=== PATIENT | female | born 1995 | race Caucasian/White ===

== ENCOUNTER 2017-06-23 03:24 | Emergency (ER) | payer MEDICAID ==
[~2017-06-23] VITALS: Ht 170.2 cm; Wt 75.7 kg
[~2017-06-23 03:24] MED LIST: ALBU18 INH; DOXY75CA4 PO; FLUT250M2 INH; RANI300T3 PO; [UNRECOGNIZED DRUG - CODE] XX; [UNRECOGNIZED DRUG - CODE] XX
[2017-06-23 03:42] VITALS: BP 147/102
[2017-06-23 04:46] LABS: Basophils # (auto) 0 uL; Eosinophils # (auto) 0.1 uL; Hemoglobin 13.6 g/dL (12.2-16.2); Monocytes # (auto) 0.7 uL; Neutrophils # (auto) 5.4 uL
[2017-06-23 04:49] LABS: Basophils % (auto) 0.4 % (0.0-2.0); Eosinophils % (auto) 1.1 % (0.0-7.0); Hematocrit 40.6 % (36.0-46.0); Lymphocytes % (auto) 24.5 % (10.0-50.0); Mean Corpuscular Hemoglobin 27.6 pg (28.0-32.0); Mean Corpuscular Hgb Conc. 33.5 g/dL (32.0-36.0); Mean Corpuscular Volume 82.4 fL (80.0-100.0); Mean Platelet Volume 10.4 fL (6.9-10.8); Monocytes % (auto) 8.1 % (0.0-12.0); Neutrophils % (auto) 65.9 % (37.0-80.0); Nucleated Red Blood Cells % 0.1 %; Platelet Count (auto) 269 10^3/uL (140-450); Red Cell Distribution Width 13.7 % (11.8-14.3); White Blood Cell 8.2 10^3/uL (4.4-10.8)
[2017-06-23 05:14] LABS: Acetaminophen < 2.0 ug/mL (10-30); Albumin 3.6 g/dL (3.4-5.0); BUN/Creatinine Ratio 9.9; Bilirubin, Total 0.2 mg/dL (0.2-1.0); Calcium 8.5 mg/dL (8.5-10.1); Magnesium 2.1 mg/dL (1.6-2.6); Potassium 3.7 mmol/L (3.5-5.1); Salicylate < 1.7 mg/dL (2.8-20.0); Total Protein 7.6 g/dL (6.4-8.2)
== END 2017-06-23 06:55 | disposition left against medical advice (07) ==
LOC: ER 03:27
DX: R51 Headache (principal)
CPT/HCPCS: 36415; 70450; 80053; 80320; 80329; 83735; 84702; 85025

== ENCOUNTER 2019-04-14 12:20 | Emergency (ER) | payer MEDICAID ==
[~2019-04-14] VITALS: Ht 170.2 cm; Wt 68.0 kg
[2019-04-14] MEDS ORDERED: SODIUM CHLORIDE 0.9% 1,000 ML IV ONE ×2 (12:24)
[2019-04-14] MEDS ORDERED: METOPROLOL TARTRATE 1MG/1ML-5ML VIAL IV ONE ×3 (12:30→16:30)
[2019-04-14] MEDS ORDERED: LORazepam 2MG/ML-1ML VIAL IV ONE (12:30)
[2019-04-14 12:50] LABS: Basophils # (auto) 0.1 uL; Basophils % (auto) 0.5 % (0.0-2.0); Eosinophils # (auto) 0.3 uL; Hematocrit 37.2 % (36.0-46.0); Hemoglobin 12.5 g/dL (12.2-16.2); Lymphocytes # (auto) 3.1 uL; Lymphocytes % (auto) 17.8 % (10.0-50.0); Mean Corpuscular Hemoglobin 29.4 pg (28.0-32.0); Mean Corpuscular Hgb Conc. 33.6 g/dL (32.0-36.0); Mean Corpuscular Volume 87.6 fL (80.0-100.0); Monocytes # (auto) 1.3 uL; Monocytes % (auto) 7.4 % (0.0-12.0); Neutrophils # (auto) 12.6 uL; Neutrophils % (auto) 72.3 % (37.0-80.0); Platelet Count (auto) 160 10^3/uL (140-450); Red Blood Cells 4.25 10^6/uL (4.0-5.20); Red Cell Distribution Width 14.3 % (11.8-14.3); White Blood Cell 17.4 10^3/uL (4.4-10.8)
[2019-04-14] MEDS ORDERED: LABETALOL HCL 5 MG/ML ML 20ML VIAL IV ONE ×2 (13:06→13:15)
[2019-04-14 13:22] LABS: Albumin 2.8 g/dL (3.4-5.0); Anion Gap 12 (5-15); Blood Urea Nitrogen 12 mg/dL (7-18); Calcium 7.8 mg/dL (8.5-10.1); Carbon Dioxide 17 mmol/L (21-32); Chloride 110 mmol/L (98-107); Glucose 96 mg/dL (74-106); Potassium 3.8 mmol/L (3.5-5.1); Sodium 139 mmol/L (136-145)
[2019-04-14 13:23] LABS: Urine WBC None Seen /hpf (0 - 5)
[2019-04-14 13:28] LABS: Alanine Aminotransferase 13 U/L (13-56); Alkaline Phosphatase 73 U/L (45-117); Aspartate Aminotransferase 15 U/L (15-37); BUN/Creatinine Ratio 16.4; Bilirubin, Total 0.3 mg/dL (0.2-1.0); GFR African American 126 mL/min; GFR Non-African American 104 mL/min; Total Protein 6.3 g/dL (6.4-8.2)
[2019-04-14 13:41] LABS: Urine Bacteria NONE SEEN /hpf (None Seen); Urine Blood 3+ /uL (Negative); Urine Specific Gravity 1.031 (1.001-1.035)
[2019-04-14 13:48] LABS: Alcohol, Urine < 3.0 mg/dL (0-5); Amphetamine Screen, Urine NEGATIVE (NEGATIVE); Barbiturate Scree,Urine NEGATIVE (NEGATIVE); Benzodiazephine Screen, Urine NEGATIVE (NEGATIVE); Cannabinoid Screen, Urine POSITIVE (NEGATIVE); Cocaine Screen, Urine NEGATIVE (NEGATIVE); Opiate Scree,Urine POSITIVE (NEGATIVE); Phencyclidine Screen, Urine NEGATIVE (NEGATIVE)
[2019-04-14] MEDS ORDERED: [UNRECOGNIZED DRUG - OTHER] IV ONE (15:45)
[2019-04-14] MEDS ORDERED: D5W 5% IV ONE (15:45)
[2019-04-14] MEDS ORDERED: NICARDIPINE 25MG/250ML BAG KIT 250 ML IV ONE (15:55)
[2019-04-14] MEDS ORDERED: NICARDIPINE 25MG/250ML BAG KIT 250 ML IV SCH (16:00)
[2019-04-14] MEDS ORDERED: LORazepam 2MG/ML-1ML VIAL ONE (16:19)
[2019-04-14] MEDS ORDERED: MORPHINE SULF INJ 2 MG/ML SYRINGE 1ML ONE (16:24)
[2019-04-14] MEDS ORDERED: diphenhdrAMINE HCL 50 MG/1 ML VL ONE (16:24)
[2019-04-14] MEDS ORDERED: diphenhdrAMINE HCL 50 MG/1 ML VL IV ONE (16:30)
[2019-04-14] MEDS ORDERED: MORPHINE SULF INJ 2 MG/ML SYRINGE 1ML IV ONE (16:30)
[2019-04-14 17:39] VITALS: BP 130/86
== END 2019-04-14 14:29 | disposition short-term general hospital (02) ==
LOC: EDBD 12:20 → ER 12:20
DX: N93.9 Abnormal uterine and vaginal bleeding, unspecified (principal); R00.2 Palpitations; Z79.899 Other long term (current) drug therapy
CPT/HCPCS: 36415; 76805; 80053; 80307; 81001; 82962; 84484; 84702; 85025; 93005; 96361; 96365; 96375; 96376; 99291; J1200; J2060; J2270; J7030; J7060

== ENCOUNTER 2024-01-27 14:24 | Inpatient (IN) | payer MEDICAID ==
[~2024-01-27] VITALS: Ht 170.2 cm; Wt 81.0 kg
[2024-01-27] MEDS: FUROSEMIDE 40 MG/4 ML VIAL IV ONE (14:30)
[2024-01-27 15:09] LABS: Basophils # (auto) 0.1 10 ^3/uL (0-0.2); Basophils % (auto) 0.8 % (0.0-2.0); Eosinophils # (auto) 0 10 ^3/uL (0-0.8); Eosinophils % (auto) 0.1 % (0.0-7.0); Hematocrit 42.1 % (36.0-46.0); Hemoglobin 12.7 g/dL (12.2-16.2); Lymphocytes # (auto) 1.4 10 ^3/uL (0.4-5.4); Lymphocytes % (auto) 17.9 % (10.0-50.0); Mean Corpuscular Hemoglobin 25.3 pg (28.0-32.0); Mean Corpuscular Hgb Conc. 30.3 g/dL (32.0-36.0); Mean Corpuscular Volume 83.6 fL (80.0-100.0); Monocytes # (auto) 0.6 10 ^3/uL (0-1.3); Neutrophils # (auto) 5.9 10 ^3/uL (1.6-8.6); Neutrophils % (auto) 74.2 % (37.0-80.0); Nucleated Red Blood Cells % 0.1 %; Red Blood Cells 5.04 10^6/uL (4.0-5.20); Red Cell Distribution Width 15.9 % (11.8-14.3); White Blood Cell 7.9 10^3/uL (4.4-10.8)
[2024-01-27 15:23] LABS: Chloride 109 mmol/L (98-107); Potassium 4.8 mmol/L (3.5-5.1); Sodium 139 mmol/L (136-145)
[2024-01-27 15:24] LABS: Anion Gap 12 (5-15); Calcium 9.9 mg/dL (8.5-10.1); Carbon Dioxide 18 mmol/L (20-30)
[2024-01-27 15:29] LABS: Blood Urea Nitrogen 20 mg/dL (9-23); Glucose 175 mg/dL (74-106)
[2024-01-27] MEDS: ASPirin 81 mg TAB PO ONE (16:00)
[2024-01-27] MEDS: IOHEXOL 350 MG/ML 100ML IJ ONE ×3 (16:33→21:17)
[2024-01-27] MEDS: LABETALOL HCL 5 MG/ML 4ML SYRINGE IV ONE ×2 (16:40→16:55)
[2024-01-27] MEDS: ONDANSETRON HCL 4 MG/2 ML VIAL IV ONE (17:11)
[2024-01-27] MEDS ORDERED: HYDROcodone-ACET 5/325MG TAB PO PRN (17:15)
[2024-01-27] MEDS ORDERED: NITROGLYCERIN 0.4 MG SL TAB SL PRN (17:15)
[2024-01-27] MEDS ORDERED: MORPHINE SULFATE INJ 2 MG/ml SYRG IV PRN ×2 (17:15)
[2024-01-27] MEDS ORDERED: ALBUTEROL SULF 2.5 MG/0.5ML(0.5%) NEB SOLN NEB PRN (17:15)
[2024-01-27] MEDS ORDERED: ACETAMINOPHEN 325 MG TAB PO PRN (17:15)
[2024-01-27 17:43] VITALS: PULSE 100; RESP 20; O2SAT 97
[2024-01-27] MEDS ORDERED: hydrALAZINE HCL 20 MG/ML VL IV PRN (18:00)
[2024-01-27] MEDS: CARVEDILOL 12.5 MG TAB PO ONE (18:00)
[2024-01-27] MEDS ORDERED: CARVEDILOL 12.5 MG TAB PO SCH (18:00)
[2024-01-27] MEDS: LEVALBUTEROL HCL 1.25 MG/3 ML NEB NEB SCH (18:54)
[2024-01-27 18:55] VITALS: PULSE 88; RESP 18; O2SAT 93
[2024-01-27 19:01] VITALS: PULSE 85; RESP 18; O2SAT 96
[2024-01-27 19:41] LABS: Triglycerides 75 mg/dL (< 150)
[2024-01-27 19:42] LABS: LDL Cholesterol 130 mg/dL (< 100)
[2024-01-27 19:43] LABS: Cholesterol 181 mg/dL (< 200); HDL Cholesterol 38 mg/dL (40-59)
[2024-01-27 20:56] VITALS: BP 148/86; PULSE 88; RESP 18; TEMP 98; O2SAT 93
[2024-01-27 21:40] VITALS: PULSE 83; RESP 17; O2SAT 98
[2024-01-27] MEDS: ACETAMINOPHEN 325 MG TAB PO PRN (22:16)
[2024-01-27 22:33] LABS: Urine Bacteria None Seen /hpf (None Seen); Urine WBC None Seen /hpf (0 - 5)
[2024-01-27 22:51] LABS: Amphetamine Screen, Urine Neg (NEGATIVE); Barbiturate Scree,Urine Neg (NEGATIVE); Benzodiazephine Screen, Urine Neg (NEGATIVE); Cocaine Screen, Urine Neg (NEGATIVE)
[2024-01-27 22:52] LABS: Cannabinoid Screen, Urine Neg (NEGATIVE); Opiate Scree,Urine Neg (NEGATIVE); Phencyclidine Screen, Urine Neg (NEGATIVE)
[2024-01-27 22:53] LABS: Urine Blood Negative /uL (Negative); Urine Clarity Clear (Clear); Urine Color Colorless (Yellow); Urine Protein, UAD Negative (Negative); Urine Specific Gravity 1.006 (1.001-1.035); Urine Urobilinogen Normal (Negative); Urine pH 5.5 (5.0-9.0)
[2024-01-28] VITALS (18 sets, daily range): BP systolic 126–139; BP diastolic 88–96; PULSE 65–92; RESP 14–20; TEMP 97.4–98.4; O2SAT 91–100
[2024-01-28] MEDS ORDERED: VANCOMYCIN 1GM/200ML 200 ML IV ONE (04:15)
[2024-01-28] MEDS ORDERED: SODIUM CHLORIDE 0.9% 1,850 ML IV ONE (04:15)
[2024-01-28 05:13] LABS: Basophils # (auto) 0.1 10 ^3/uL (0-0.2); Hemoglobin 11.9 g/dL (12.2-16.2); Mean Corpuscular Volume 80.7 fL (80.0-100.0); White Blood Cell 8.8 10^3/uL (4.4-10.8)
[2024-01-28 05:17] LABS: Eosinophils # (auto) 0.2 10 ^3/uL (0-0.8); Eosinophils % (auto) 1.7 % (0.0-7.0); Lymphocytes # (auto) 2.8 10 ^3/uL (0.4-5.4); Lymphocytes % (auto) 32.2 % (10.0-50.0); Mean Corpuscular Hemoglobin 25.9 pg (28.0-32.0); Mean Corpuscular Hgb Conc. 32.1 g/dL (32.0-36.0); Monocytes # (auto) 0.8 10 ^3/uL (0-1.3); Monocytes % (auto) 9.4 % (0.0-12.0); Neutrophils # (auto) 4.9 10 ^3/uL (1.6-8.6); Neutrophils % (auto) 55.7 % (37.0-80.0); Nucleated Red Blood Cells % 0.1 %; Red Blood Cells 4.58 10^6/uL (4.0-5.20)
[2024-01-28 05:30] LABS: Alanine Aminotransferase 45 U/L (7-40); Albumin 3.8 g/dL (3.2-4.8); Alkaline Phosphatase 77 U/L (46-116); Anion Gap 9 (5-15); Aspartate Aminotransferase 54 U/L (13-40); BUN/Creatinine Ratio 18.3 (10.0-20.0); Blood Urea Nitrogen 23 mg/dL (9-23); Calcium 9.6 mg/dL (8.7-10.4); Carbon Dioxide 25 mmol/L (20-30); Chloride 103 mmol/L (98-107); Glucose 89 mg/dL (74-106); Sodium 137 mmol/L (136-145)
[2024-01-28 05:31] LABS: Bilirubin, Total 0.7 mg/dL (0.2-1.0)
[2024-01-28] MEDS: CARVEDILOL 12.5 MG TAB PO SCH (06:25)
[2024-01-28] MEDS: ENOXAPARIN SOD 40 MG/0.4 ML SYRINGE SC SCH (09:40)
[2024-01-28] MEDS ORDERED: FUROSEMIDE 20 MG/2 ML VIAL IV SCH (10:00)
[2024-01-28] MEDS: FUROSEMIDE 20 MG/2 ML VIAL IV SCH (10:17)
[2024-01-28] MEDS ORDERED: ALBU108A5 INH (11:51)
[2024-01-28] MEDS ORDERED: MOME1AER3 INH (11:52)
[2024-01-28] MEDS ORDERED: METHADONE HCL 10 MG TAB PO PRN (13:45)
[2024-01-28] MEDS: BUPRENORPHINE -NALOXONE 2-0.5mg SL TAB SL SCH (18:36)
[2024-01-29] VITALS (18 sets, daily range): BP systolic 127–141; BP diastolic 89–99; PULSE 67–99; RESP 14–20; TEMP 97.3–98.1; O2SAT 90–100
[2024-01-29] MEDS: LORazepam 2MG/ML-1ML VIAL IV PRN (03:39)
[2024-01-29] MEDS: IPRATROPIUM BROM 0.5 MG/2.5ML INH SOL NEB SCH (06:44)
[2024-01-29 07:01] LABS: INR 1.27 (0.9-1.15); Partial Thromboplastin Time 25.4 SEC (24.5-34.5); Prothrombin Time 13.2 sec (9.3-11.8)
[2024-01-29 07:04] LABS: Basophils # (auto) 0.1 10 ^3/uL (0-0.2); Basophils % (auto) 0.9 % (0.0-2.0); Eosinophils # (auto) 0.3 10 ^3/uL (0-0.8); Eosinophils % (auto) 4.6 % (0.0-7.0); Hematocrit 33.7 % (36.0-46.0); Hemoglobin 10.9 g/dL (12.2-16.2); Lymphocytes # (auto) 2.1 10 ^3/uL (0.4-5.4); Lymphocytes % (auto) 36.6 % (10.0-50.0); Mean Corpuscular Hemoglobin 26.2 pg (28.0-32.0); Mean Corpuscular Hgb Conc. 32.4 g/dL (32.0-36.0); Mean Corpuscular Volume 80.9 fL (80.0-100.0); Monocytes # (auto) 0.6 10 ^3/uL (0-1.3); Monocytes % (auto) 11.3 % (0.0-12.0); Neutrophils # (auto) 2.7 10 ^3/uL (1.6-8.6); Neutrophils % (auto) 46.6 % (37.0-80.0); Red Blood Cells 4.16 10^6/uL (4.0-5.20); Red Cell Distribution Width 15.7 % (11.8-14.3); White Blood Cell 5.7 10^3/uL (4.4-10.8)
[2024-01-29 07:13] LABS: Alanine Aminotransferase 36 U/L (7-40); Albumin 3.4 g/dL (3.2-4.8); Alkaline Phosphatase 65 U/L (46-116); Anion Gap 5 (5-15); Aspartate Aminotransferase 29 U/L (13-40); BUN/Creatinine Ratio 16.5 (10.0-20.0); Blood Urea Nitrogen 17 mg/dL (9-23); CRP High Sensitivity 0.44 mg/dL (<1.0); Calcium 8.7 mg/dL (8.5-10.1); Carbon Dioxide 30 mmol/L (20-30); Chloride 106 mmol/L (98-107); Glucose 89 mg/dL (74-106); Magnesium 1.6 mg/dL (1.6-2.6); Phosphorus 4.2 mg/dL (2.4-5.1); Potassium 3.8 mmol/L (3.5-5.1); Sodium 141 mmol/L (136-145)
[2024-01-29 07:14] LABS: Bilirubin, Total 0.4 mg/dL (0.2-1.0); Total Protein 5.5 g/dL (5.7-8.2)
[2024-01-29] MEDS: SPIRONOLACTONE 25 MG TAB PO SCH (10:15)
[2024-01-29] MEDS: EMPAGLIFLOZIN 10 MG TAB PO SCH (10:15)
[2024-01-29] MEDS: VALSARTAN 80 MG TAB PO SCH (10:16)
[2024-01-30] VITALS (13 sets, daily range): BP systolic 120–176; BP diastolic 72–120; PULSE 85–115; RESP 17–21; TEMP 97.2–98.1; O2SAT 95–100
[2024-01-30] MEDS: BUPRENORPHINE -NALOXONE 2-0.5mg SL TAB SL PRN (03:49)
[2024-01-30] MEDS: HYDROcodone-ACET 5/325MG TAB PO PRN (05:01)
[2024-01-30 06:50] LABS: Basophils # (auto) 0.1 10 ^3/uL (0-0.2); Eosinophils # (auto) 0.4 10 ^3/uL (0-0.8); Hemoglobin 11.9 g/dL (12.2-16.2); Lymphocytes # (auto) 2.9 10 ^3/uL (0.4-5.4); Neutrophils # (auto) 5.3 10 ^3/uL (1.6-8.6); Nucleated Red Blood Cells % 0.1 %; Red Cell Distribution Width 15.7 % (11.8-14.3); White Blood Cell 9.5 10^3/uL (4.4-10.8)
[2024-01-30 06:53] LABS: Basophils % (auto) 0.8 % (0.0-2.0); Eosinophils % (auto) 4.1 % (0.0-7.0); Hematocrit 37.5 % (36.0-46.0); Lymphocytes % (auto) 30.1 % (10.0-50.0); Mean Corpuscular Hemoglobin 25.2 pg (28.0-32.0); Mean Corpuscular Hgb Conc. 31.6 g/dL (32.0-36.0); Mean Corpuscular Volume 79.8 fL (80.0-100.0); Monocytes # (auto) 0.9 10 ^3/uL (0-1.3)
[2024-01-30 07:14] LABS: Alanine Aminotransferase 38 U/L (7-40); Alkaline Phosphatase 71 U/L (46-116); Anion Gap 6 (5-15); Aspartate Aminotransferase 30 U/L (13-40); BUN/Creatinine Ratio 15.8 (10.0-20.0); Blood Urea Nitrogen 16 mg/dL (9-23); Calcium 8.8 mg/dL (8.5-10.1); Carbon Dioxide 27 mmol/L (20-30); Chloride 107 mmol/L (98-107); Glucose 104 mg/dL (74-106); Magnesium 1.7 mg/dL (1.6-2.6); Potassium 3.3 mmol/L (3.5-5.1); Sodium 140 mmol/L (136-145)
[2024-01-30 07:15] LABS: Albumin 3.6 g/dL (3.2-4.8); Bilirubin, Total 0.4 mg/dL (0.2-1.0); Phosphorus 3.7 mg/dL (2.4-5.1)
[2024-01-30] MEDS ORDERED: METHADONE HCL 10 MG TAB PO ONE (09:15)
[2024-01-30] MEDS: SACUBITRIL-VALSARTAN 24mg/26mg TAB PO SCH (09:35)
[2024-01-30] MEDS: FUROSEMIDE 20 MG TAB PO SCH (09:36)
[2024-01-30] MEDS ORDERED: METHADONE HCL 10 MG TAB PO SCH ×2 (10:00→14:00)
[2024-01-30] MEDS: METHADONE HCL 10 MG TAB PO PRN (10:08)
[2024-01-30] MEDS ORDERED: SACU1TAB PO (10:30)
[2024-01-30] MEDS ORDERED: EMPA1TAB PO (10:30)
[2024-01-30] MEDS ORDERED: FUR20T PO (10:30)
[2024-01-30] MEDS ORDERED: CARV-216 PO (10:30)
[2024-01-30] MEDS ORDERED: ACET-1882 PO (10:30)
[2024-01-30] MEDS ORDERED: SPIR25TA PO (10:30)
[2024-01-30] MEDS: POTASSIUM CHLORIDE 40 MEQ, LIDOCAINE 1% (LOCAL ANESTH.) 4 ML in SODIUM CHL 0.9% 250 ML IV ONE (12:39)
[2024-01-30] MEDS: POTASSIUM CHL 20 Meq TABLET PO ONE (17:30)
[2024-01-31] VITALS (7 sets, daily range): BP systolic 127–131; BP diastolic 92–100; PULSE 80–94; RESP 16–19; TEMP 97.5–98; O2SAT 96–100
[2024-01-31] MEDS: MELATONIN 5 MG TAB PO ONE (01:53)
[2024-01-31 06:54] LABS: Basophils # (auto) 0.1 10 ^3/uL (0-0.2); Basophils % (auto) 0.8 % (0.0-2.0); Eosinophils # (auto) 0.3 10 ^3/uL (0-0.8); Hematocrit 40.8 % (36.0-46.0); Hemoglobin 13.2 g/dL (12.2-16.2); Mean Corpuscular Hgb Conc. 32.4 g/dL (32.0-36.0); Monocytes # (auto) 0.9 10 ^3/uL (0-1.3); Nucleated Red Blood Cells % 0.1 %
[2024-01-31 06:57] LABS: Eosinophils % (auto) 4.6 % (0.0-7.0); Lymphocytes # (auto) 2.3 10 ^3/uL (0.4-5.4); Lymphocytes % (auto) 30.1 % (10.0-50.0); Mean Corpuscular Hemoglobin 26.1 pg (28.0-32.0); Mean Corpuscular Volume 80.6 fL (80.0-100.0); Monocytes % (auto) 12.3 % (0.0-12.0); Neutrophils # (auto) 3.9 10 ^3/uL (1.6-8.6); Neutrophils % (auto) 52.2 % (37.0-80.0); Red Blood Cells 5.06 10^6/uL (4.0-5.20); Red Cell Distribution Width 15.8 % (11.8-14.3); White Blood Cell 7.6 10^3/uL (4.4-10.8)
[2024-01-31 07:07] LABS: Alanine Aminotransferase 32 U/L (7-40); Alkaline Phosphatase 60 U/L (46-116); Anion Gap 5 (5-15); Aspartate Aminotransferase 28 U/L (13-40); BUN/Creatinine Ratio 10.6 (10.0-20.0); Bilirubin, Total 0.7 mg/dL (0.2-1.0); Blood Urea Nitrogen 10 mg/dL (9-23); Calcium 8.8 mg/dL (8.7-10.4); Carbon Dioxide 28 mmol/L (20-30); Chloride 106 mmol/L (98-107); Glucose 92 mg/dL (74-106); Magnesium 1.8 mg/dL (1.6-2.6); Phosphorus 3.8 mg/dL (2.4-5.1); Potassium 3.7 mmol/L (3.5-5.1); Sodium 139 mmol/L (136-145); Total Protein 5.3 g/dL (5.7-8.2)
== END 2024-01-31 10:42 | disposition home or self-care (01) | DRG 133 ==
LOC: ER 14:24 → EDUNIT# 14:24 → EDBD 14:24 → TELE 17:27 → TELE-E-ADS 01-28 11:39 → TELE-EAST 01-28 17:21
PROVIDERS: ADMIT Internal Medicine Pulmonary Disease; ATTEND Internal Medicine Pulmonary Disease
DX: J96.00 Acute respiratory failure, unspecified whether with hypoxia or hypercapnia (principal); N17.0 Acute kidney failure with tubular necrosis; I21.A1 Myocardial infarction type 2; I50.23 Acute on chronic systolic (congestive) heart failure; I42.0 Dilated cardiomyopathy; I11.0 Hypertensive heart disease with heart failure; E78.5 Hyperlipidemia, unspecified; I16.0 Hypertensive urgency; J45.909 Unspecified asthma, uncomplicated; E55.9 Vitamin D deficiency, unspecified; F11.13 Opioid abuse with withdrawal; Z82.61 Family history of arthritis; Z80.49 Family history of malignant neoplasm of other genital organs; Z91.199 Patient's noncompliance with other medical treatment and regimen due to unspecified reason
CPT/HCPCS: 36415; 71045; 71275; 80048; 80053; 80061; 80307; 81001; 82140; 82306; 82607; 83036; 83605; 83735; 83880; 84100; 84443; 84484; 85025; 85379; 85610; 85730; 86141; 93005; 93306; 93970; 94640; 96374; 96375; 99291; G0378; J2001; J2405; J3490